=== PATIENT | male | born 1965 | race African-American/Black ===

== ENCOUNTER 2017-01-13 06:03 | Emergency (ER) | payer OTHER ==
[~2017-01-13] VITALS: Ht 182.9 cm; Wt 102.1 kg
--- NOTE | ~2017-01-13 | EKG ---
[facility] [place] [address] ELECTROCARDIOGRAM REPORT Name: HOWARD VARGHESE Room #: [facility]#: [id number] Admission: 01/13/17 Attend Phys: Discharge: Date of : 65 Report #: [id number] THIS REPORT FOR: //name// [facility] ED Test Date: 2017-01-13 Test Time: 06:08:26 Pat Name: HOWARD VARGHESE Department: Room: Gender: Director Of Operations Home Health: KWASI : 1965 Requested By: Lori Whitaker Order Number: [id number] MD: Mor Jorge Measurements Intervals [place] Rate: 60 P: 62 [place]: 182 QRS: -15 QRSD: 96 T: 30 QT: 372 QTc: 372 Interpretive Statements Sinus rhythm Borderline left axis deviation RSR' in V1 or V2, probably normal variant Compared to ECG 01/25/2013 03:30:01 Sinus bradycardia no longer present Electronically Signed On 01-13-2017 8:01:06 CDT by Mor Jorge [email or web address] <ELECTRONICALLY SIGNED> By: Mor Jorge MD, [facility] 01/13/17 08 7 7 Mor Jorge MD, FACC /EPI
[~2017-01-13 06:03] MED LIST: ACETAMINOPHEN-120 ML PO; FIORICET 50-321 EACH PO; IBUPROFEN 600600 M1 PO; KEFLEX500 MG PO; LORTAB 5 MG/5001 TAB PO; NAPROSYN500 MG PO; NOHOMEMEDICATIONS; NORCO 5-325 TA1 EACH PO; PHENERGAN 25 MG25 M1 PO; TAMIFLU PO; VALIUM5 MG PO; VENTOLIN17 GM INH
[2017-01-13 06:26] LABS: ABSOLUTE NEUTROPHILS 2.2 thou/uL (1.4-8.2); BASOPHILS 1.1 % (0.0-2.0); EOSINOPHILS 5.9 % (0.0-3.0); HEMATOCRIT 41.4 % (42.0-52.0); HEMOGLOBIN 14.1 gm/dL (14.0-18.0); LYMPHOCYTES 35.8 % (24.0-44.0); MCH 29.9 pg (26.0-34.0); MCV 87.7 fL (80.0-100.0); MONOCYTES 9.3 % (1.0-8.0); PLATELET COUNT 254 thou/uL (150-400); POLYS 47.9 % (36.0-66.0); RBC 4.72 mil/uL (4.50-6.00); RDW 13.3 % (10.5-14.5); WBC 4.5 thou/uL (4.0-11.0)
[2017-01-13 06:33] LABS: ANION GAP 12 mmol/L (7-16); BUN 17 mg/dL (7-18); CALCIUM 8.7 mg/dL (8.5-10.1); CHLORIDE 104 mmol/L (98-107); CO2 22 mmol/L (21-32); CREATININE 1.1 mg/dL (0.7-1.3); GLUCOSE 120 mg/dL (74-106); POTASSIUM 3.6 mmol/L (3.5-5.1); SODIUM 138 mmol/L (136-145)
[2017-01-13 06:41] LABS: TROPONIN-I < 0.04 ng/mL (<0.04-0.07)
[2017-01-13 06:42] LABS: MANUAL DIFF NO
[2017-01-13] MEDS ORDERED: PROTONIX40 MG PO (09:11)
[2017-01-13] MEDS ORDERED: NORCO 5-325 TA1 EACH PO (09:11)
[2017-01-13 09:29] LABS: ALBUMIN 3.3 g/dL (3.4-5.0); ALKALINE PHOSPHATASE 89 U/L (46-116); SGOT 22 U/L (15-37); SGPT 40 U/L (30-65); TOTAL BILIRUBIN 0.3 mg/dL (<0.1-1.0); TOTAL PROTEIN 7.6 g/dL (6.4-8.2)
[2017-01-13 09:36] LABS: DIRECT BILIRUBIN < 0.1 mg/dL (<0.1-0.3)
[2017-01-13 09:47] VITALS: BP 112/69
== END 2017-01-13 09:47 | disposition home or self-care (01) ==
LOC: ER 06:03
PROVIDERS: Emergency Medicine
DX: R07.89 Other chest pain (principal); R11.0 Nausea